=== PATIENT | female | born 1980 | race Two or more races ===

== ENCOUNTER 2025-06-13 12:00 | Day surgery (SDC) | payer OTHER ==
[2025-06-13] MEDS ORDERED: LIDOCAINE HCL 1%/EPINEPHRINE 20ML VIAL IJ ONE (14:31)
[2025-06-13] MEDS ORDERED: POVIDONE-IODINE 118 ML BOTT TOP ONE (14:31)
[2025-06-13] MEDS ORDERED: KETOROLAC TROMETHAMINE 30 MG VIAL ONE (16:36)
[2025-06-13] MEDS ORDERED: KETOROLAC TROMETHAMINE 30 MG VIAL IV ONE (16:45)
[2025-06-13] MEDS ORDERED: ONDANSETRON HCL 2 MG/ML VIAL ONE (18:31)
== END 2025-06-13 19:50 | disposition home or self-care (01) ==
LOC: CIR.AMB 12:00
PROVIDERS: ATTEND Obstetrics & Gynecology
DX: Z30.2 Encounter for sterilization (principal); R10.2 Pelvic and perineal pain; Z91.018 Allergy to other foods